=== PATIENT | female | born 1975 | race Caucasian/White ===

== ENCOUNTER 2022-01-11 09:18 | Emergency (ER) | payer MEDICAID, SELFPAY ==
[2022-01-11 09:34] VITALS: BP 151/88; PULSE 88; RESP 18; TEMP 36.9; O2SAT 98; BMI 24.1
[2022-01-11 10:46] VITALS: BP 117/82; PULSE 97; RESP 18; O2SAT 97
--- NOTE | 2022-01-11 10:48 | PC.NURSE ---
pt alert and oriented, skin pwd, respirations even and unlabored, pt reports having a rash on the right roque area, visible large/red/dry rash on the mid roque area also few smaller rash areas on the left lower leg and both arms, p stats pain at 4/10 its burning pt did report drinking couple times a week and was drinking today as well
--- NOTE | 2022-01-11 10:59 | ED_ITS ---
HPI - Skin/Abscess/Foreign Bdy General Chief complaint: Skin/Abscess/Foreign Body Stated complaint: draining rash r leg Time Seen by Provider: 01/11/22 10:37 Source: patient Mode of arrival: ambulatory History of Present Illness HPI narrative: this is a 46 years old of female who presented to the ED complaining of a rash in the right leg which has been present for about 3 months. She states that she was hospitalized in [place] a she was discharged today with cortisone cream. Denies any fever and chills. MD complaint: rash Onset (ago): month(s) (3) Location: RLE Severity: moderate Quality: burning Pain Consistency: constant Relieving factors: none Exacerbating factors: none Context: none Associated symptoms: denies other symptoms Related Data Allergies Allergy/AdvReac Type Severity Reaction Status Date / Time No Known Allergies Allergy Verified 01/11/22 09:32 Review of Systems Review of Systems: Yes all other systems are reviewed and are negative Eyes: Eyes: Reports no additional eye complaints Cardiovascular: Cardiovascular: Reports no additional cardiovascular complaints Respiratory: Respiratory: Reports no additional respiratory complaints Gastrointestinal: Gastrointestinal: Reports no additional gastrointestinal c omplaints [facility] Past Medical History [facility] Narrative: alcohol use disorder Social History Social History Alcohol intake: current Alcohol intake frequency: a few times a week Patient Tobacco Use Status: Current everyday Tobacco user Use of substances other than those prescribed or required for medical reasons: No Advance Directives: No Advance Directives Information Provided: No Physical Exam Vital Signs: Vital Signs: Last Vital Signs Temp 98.5 F 01/11/22 09:34 Pulse 97 01/11/22 10:46 Resp 18 01/11/22 10:46 BP 117/82 01/11/22 10:46 Pulse Ox 97 01/11/22 10:46 BMI result Body Mass Index 24.1 Const: General: cooperative and comfortable Orientation/consciousness: patient oriented x3 Limitations: no limitations HEENT: Head: Yes normal to inspection Ears: hearing grossly normal bilaterally Face and sinus: Yes normal facial exam Mouth: Normal oral and palatal mucosa present Neck: Neck: Yes normal visual inspection and Yes full ROM Chest: Chest palpation & inspection: normal inspection of the chest Resp: Effort & Inspection: normal respiratory effort Auscultation: clear to auscultation bilaterally Cardio: Jugular venous distension: no JVD Rate: regular rate Rhythm: regular rhythm GI: Inspection: Yes normal to inspection Palpation (GI): Soft to palpation, not firm, nontender and no guarding Percussion: Yes normal to percussion Neuro: General: patient oriented x3 Extrem: Other: Examination the right lower extremity shows 6 x 3 cm erythematous lesion eczematous Course Reevaluation(s) Reevaluation #1: I ordered blood work CBC ,chemistry , blood culture,I requested record from [place] as well,however pt eloped she refused blood work and eloped,she was in stable condition afebrile,pulse was 88 BP 151/88 . Again eloped Discharge Plan Discharge Clinical Impression: Rash Patient Disposition: Left Against Medical Advice Discharge Date/Time: 01/11/22 11:05
--- NOTE | 2022-01-11 11:00 | PC.NURSE ---
dr koch at bedside attempting and iv via us that pt originally agreed then started to yell out to stop that she does not want blood work, refusing at medical work up, pt just took of and left the ed, mom with her.
== END 2022-01-11 11:05 | disposition left against medical advice (07) ==
PROVIDERS: Emergency Provider Emergency Medicine
DX: R21 Rash and other nonspecific skin eruption (principal); F17.200 Nicotine dependence, unspecified, uncomplicated; Z71.6 Tobacco abuse counseling
CPT/HCPCS: 99283